=== PATIENT | female | born 1975 | race Caucasian/White ===

== ENCOUNTER 2017-03-23 15:05 | Emergency (ER) | payer OTHER ==
[2017-03-23 15:49] LABS: HEMOGLOBIN 14.8 gm/dl (12.3-15.3); RED BLOOD COUNT 4.52 M/UL (4.00-5.10); WHITE BLOOD COUNT 7.8 K/UL (4.5-11.0)
[2017-03-23 16:11] LABS: BUN/CREATININE RATIO 10 (0-10)
== END 2017-03-23 17:15 | disposition home or self-care (01) ==
LOC: ER1 15:05
PROVIDERS: Physician Assistant Medical
DX: R21 Rash and other nonspecific skin eruption (principal); F17.210 Nicotine dependence, cigarettes, uncomplicated; Z88.1 Allergy status to other antibiotic agents; Z88.2 Allergy status to sulfonamides
CPT/HCPCS: 36415; 80053; 81001; 82150; 83690; 85025; 85610; 85730; 99283